=== PATIENT | male | born 1985 | race Caucasian/White ===

== ENCOUNTER 2016-06-04 08:51 | Observation (INO) | payer OTHER ==
[2016-06-04 08:53] VITALS: BMI 28.3
[2016-06-04] MEDS ORDERED: Sodium Chloride 0.9% 1,000 ML IV STA (09:21)
[2016-06-04 09:34] LABS: ADD MANUAL DIFF? NO
[2016-06-04 09:47] LABS: ALB/GLOB RATIO 1.2 (1.1-1.8); ALKALINE PHOSPHATASE 71 U/L (38-133); ALT/SGPT 56 U/L (7-56); AMYLASE 75 U/L (35-125); AST/SGOT 33 U/L (15-59); BILIRUBIN,TOTAL 0.8 mg/dL (0.2-1.3); BLOOD UREA NITROGEN 9 mg/dL (7-21); CALCIUM 9.8 mg/dL (8.4-10.5); CARBON DIOXIDE 28 mmol/L (21-33); CHLORIDE 100 mmol/L (98-107); GFR AFRICAN-AMERICAN > 60; GLUCOSE,RANDOM 124 mg/dL (70-110); LIPASE 99 U/L (23-300); POTASSIUM 4.2 mmol/L (3.6-5.0); SODIUM 140 mmol/L (132-148)
--- NOTE | 2016-06-04 09:47 | ED PDOC ---
Arrival/HPI - General Chief Complaint: Abdominal Pain Time Seen by Provider: 06/04/16 09:21 Historian: Patient - History of Present Illness Narrative History of Present Illness (Text): 06/04/16 09:44 30-year-old male presents today with lower abdominal pain that started 2 days ago. Patient states the pain is crampy and sharp in the lower abdomen and is nonradiating. He denies dysuria or urinary frequency or urgency. Denies vomiting. Patient states he's been having intermittent diarrhea. Patient states that pain is intermittent. No dizziness or weakness. He denies testicular pain. Denies back pain. Patient denies fevers or chills. No medications have been taken at home. No sick contacts. No other complaints. Past Medical History - Provider Review Nursing Documentation Reviewed: Yes - Travel History Have you recently traveled outside [place] w/in the past 3 mons?: No - Tetanus Immunization Tetanus Immunization: Unknown - Cardiac Hx Cardiac Disorders: No - Pulmonary Hx Respiratory Disorders: No - Neurological Hx Neurological Disorder: No - HEENT Hx HEENT Disorder: No - Renal Hx Renal Disorder: No - Endocrine/Metabolic Hx Endocrine Disorders: No - Hematological/Oncological Hx Blood Disorders: No - Integumentary Hx Dermatological Disorder: No - Musculoskeletal/Rheumatological Hx Musculoskeletal Disorders: Yes (cerebral palsy) - Gastrointestinal Hx Gastrointestinal Disorders: No - Genitourinary/Gynecological Hx Genitourinary Disorders: No - Psychiatric Hx Psychophysiologic Disorder: No Hx Substance Use: No - Surgical History Hx Orthopedic Surgery: Yes (left leg) Family/Social History - Physician Review Nursing Documentation Reviewed: Yes Family/Social History: Unknown Family HX Smoking Status: Former Smoker Hx Alcohol Use: No Hx Substance Use: No Allergies/Home Meds Allergies/Adverse Reactions: Allergies lactose Adverse Reaction (Verified 06/04/16 08:53) DIARRHEA Home Medications: Home Meds Medication Instructions Recorded Confirmed No Known Home Med 06/04/16 06/04/16 Review of Systems - Review of Systems Constitutional: absent: Fatigue, Fevers Respiratory: absent: SOB, Cough Cardiovascular: absent: Chest Pain, Palpitations Gastrointestinal: Abdominal Pain, Diarrhea. absent: Nausea, Vomiting Genitourinary Male: absent: Dysuria, Frequency, Hematuria, Urinary Output Changes Musculoskeletal: absent: Arthralgias, Back Pain, Neck Pain Skin: absent: Rash, Pruritis Neurological: absent: Headache, Dizziness Psychiatric: absent: Anxiety, Depression Physical Exam Vital Signs Reviewed: Yes Vital Signs Temp Pulse Resp BP Pulse Ox 06/04/16 08:53 98 F 89 16 149/83 96 Temperature: Afebrile Blood Pressure: Normal Pulse: Regular Respiratory Rate: Normal Appearance: Positive for: Well-Appearing, Non-Toxic, Comfortable Pain Distress: None Mental Status: Positive for: Alert and Oriented X 3 - Systems Exam Head: Present: Atraumatic Mouth: Present: Moist Mucous Membranes Neck: Present: Normal Range of Motion Respiratory/Chest: Present: Clear to Auscultation, Good Air Exchange. No: Respiratory Distress, Accessory Muscle Use Cardiovascular: Present: Regular Rate and Rhythm, Normal S1, S2. No: Murmurs Abdomen: Present: Tenderness (+ lower abdomen tenderness, rlq greater than llq) , Normal Bowel Sounds, McBurney's Point Tender. No: Distention, Peritoneal Signs, Rebound, Guarding Back: Present: Normal Inspection. No: CVA Tenderness, Midline Tenderness, Paraspinal Tenderness Neurological: Present: GCS=15 Skin: Present: Warm, Dry, Normal Color. No: Rashes Psychiatric: Present: Alert, Oriented x 3 Medical Decision Making ED Course and Treatment: 06/04/16 09:47 Patient is nontoxic well appearing with stable vital signs presenting with 2 day history of lower abdominal pain with diarrhea. + rlq and llq tenderness. CBC wnl CMP glucose; 124 Amylase wnl Lipase wnl Urinalysis + trace blood CAT scan:FINDINGS: LOWER THORAX: Heart appears borderline/ mildly enlarged. No significant pericardial effusion. Tiny hiatal hernia with slight wall thickening of the distal esophagus which could be due to protrusion of gastric mucosa. The possibility of esophagitis not excluded. Minimal bibasilar atelectasis. No effusion or basilar pneumothorax. LIVER: The liver is borderline/mildly enlarged measuring nearly 18 cm in CC dimension. Mild diffuse fatty hepatic infiltration. No obvious hepatic mass or collection. GALLBLADDER AND BILE DUCTS: Unremarkable. Gallbladder is physiologically distended. No evidence of intraluminal gallbladder calculi. PANCREAS: The pancreas is slightly fatty replaced. No pancreatic mass collection or calcification identified. No significant pancreatic ductal dilatation. . SPLEEN: The spleen exhibits normal size and attenuation pattern without mass collection or calcification. ADRENALS: The the right adrenal gland is unremarkable. Small approximately 12 mm nodule left adrenal gland. Followup at interval recommended to assess stability. KIDNEYS AND URETERS: Kidneys exhibit symmetric nephrograms. No evidence of nephrolithiasis or hydronephrosis. BLADDER: Urinary bladder is physiologically distended. No evidence of intraluminal urinary bladder calculi. REPRODUCTIVE: Prostate gland measures approximately 4.2 cm in transverse dimension. APPENDIX: The appendix is mildly dilated measuring up to 7.14 mm. Minimal prominence of the appendiceal wall. The possibility of an early acute appendicitis must be excluded with clinical correlation. BOWEL: The evaluation of the bowel is limited due to due to lack of oral contrast material. The stomach is distended with food debris liquid and air. . Multiple loops of proximal small bowel (including the duodenum) exhibit [id number] wall thickening and dilatation consistent with a nonspecific enteritis. Clinical correlation recommended the to exclude infectious versus inflammatory etiologies. Stool and air seen throughout the colon. No evidence of definitive mural wall thickening. Diverticula seen along the descending colon. PERITONEUM: No evidence of free intraperitoneal air. No free or loculated fluid collections. There is a small fat containing umbilical hernia. LYMPH NODES: No significant adenopathy VASCULATURE: Unremarkable. No aortic aneurysm. BONES: The osseous structures appear intact. . There appears to be a subtle subclinical dextroscoliosis. OTHER FINDINGS: None. IMPRESSION: Impression: Multiple loops of proximal small bowel exhibit dilatation and wall thickening consistent with nonspecific enteritis. In addition, there is also mild dilatation of the appendix measuring up to 7.14 mm with minimal prominence of the appendiceal wall. Findings are equivocal for acute appendicitis however early acute appendicitis cannot be excluded. Clinical correlation recommended. . Diverticulosis without radiographic evidence of acute diverticulitis. Borderline/mild hepatomegaly with mild fatty hepatic infiltration. Small left adrenal nodule. Followup study at interval recommended to assess stability. Patient reassessment: pt non toxic well appearing; no distress. Discussed all results with patient in depth case discussed with dr. summers and the operating room surgical technician. will admit observational status to dr. jiang service. all aspects of this case were discussed the attending of record. Impression:abdominal pain, r/o appendicitis admit observational status to med/surg for surgical evaluation and serial abdominal examination - Lab Interpretations Lab Results: 06/04/16 09:30 06/04/16 09:30 Lab Results 06/04/16 09:30: WBC 9.1, RBC 4.76, Hgb 15.0, Hct 43.2, MCV 90.8, MCH 31.5, MCHC 34.7, RDW 14.2, Plt Count 400, MPV 8.4, Gran % 58.7, Lymph % (Auto) 29.6, [place] % (Auto) 8.0 H, Eos % (Auto) 2.7, Baso % (Auto) 1.0, Gran # 5.35, Lymph # 2.7, [place] # 0.7 H, Eos # 0.3, Baso # 0.09, Sodium 140, Potassium 4.2, Chloride 100, Carbon Dioxide 28, Anion Gap 16, BUN 9, Creatinine 0.8, Est GFR ( Amer) > 60, Est GFR (Non-Af Amer) > 60, Random Glucose 124 H, Calcium 9.8, Total Bilirubin 0.8, AST 33, ALT 56, Alkaline Phosphatase 71, Total Protein 8.0, Albumin 4.3, Globulin 3.7, Albumin/Globulin Ratio 1.2, Amylase 75, Lipase 99, Urine Color Yellow, Urine Appearance Clear, Urine pH 6.0, Ur Specific [place] 1.025, Urine Protein Negative, Urine Glucose (UA) Negative, Urine Ketones Negative, Urine Blood Trace-intact H, Urine Nitrate Negative, Urine Bilirubin Negative, Urine Urobilinogen 0.2, Ur Leukocyte Esterase Negative, Urine RBC 0 - 2, Urine WBC Negative - RAD Interpretation Radiology Orders: 06/04/16 09:21 ABD & PELVIS IV CONTRAST ONLY [CT] Stat - Medication Orders Current Medication Orders: Discontinued Medications Sodium Chloride (Sodium Chloride 0.9%) 1,000 mls @ 999 mls/hr IV .Q1H1M STA Stop: 06/04/16 10:21 Last Admin: 06/04/16 09:31 Dose: 999 MLS/HR eMAR Start Stop Document 06/04/16 09:31 SE (Rec: 06/04/16 09:31 SE [id number]) Intravenous Solution Start Date 06/04/16 Start Time 09:31 Iohexol (Omnipaque 350 100 Ml) Confirm Administered Dose 350 mg .ROUTE .STK-MED ONE Stop: 06/04/16 10:02 Ketorolac Tromethamine (Toradol) 30 mg IVP STAT STA Stop: 06/04/16 10:50 Disposition/Present on Arrival - Present on Arrival Any Indicators Present on Arrival: No History of DVT/PE: No History of Uncontrolled Diabetes: No Urinary Catheter: No History of Decub. Ulcer: No History Surgical Site Infection Following: None - Disposition Have Diagnosis and Disposition been Completed?: Yes Diagnosis: Abdominal pain Disposition: HOSPITALIZED Disposition Time: 10:59 Patient Plan: Observation Condition: FAIR
[2016-06-04 09:48] LABS: BASO # 0.09 K/mm3 (0.0-2.0); EOS # 0.3 (0.0-0.7); EOS % 2.7 % (1.5-5.0); GRAN # 5.35 (1.4-6.5); GRAN % 58.7 % (50.0-68.0); HEMATOCRIT 43.2 % (42.0-52.0); LYMPH # 2.7 (1.2-3.4); LYMPH % 29.6 % (22.0-35.0); MEAN CELL VOLUME 90.8 fL (80.0-105.0); MEAN CORPUSCULAR HEMOGLOBIN 31.5 pg (25.0-35.0); MEAN CORPUSCULAR HGB CONC 34.7 g/dl (31.0-37.0); MEAN PLATELET VOLUME 8.4 fl (7.0-11.0); MONO # 0.7 (0.1-0.6); PLATELET COUNT 400 10^3/uL (120.0-450.0); RED CELL DISTRIBUTION WIDTH 14.2 % (11.5-14.5); URINE BILIRUBIN NEGATIVE (NEGATIVE); URINE BLOOD TRACE-INTACT (NEGATIVE); URINE GLUCOSE (UA) NEGATIVE (NEGATIVE); URINE KETONE NEGATIVE (NEGATIVE); URINE LEUKOCYTE ESTERASE NEGATIVE Leu/uL (NEGATIVE); URINE PROTEIN NEGATIVE mg/dL (<30 mg/dL); URINE UROBILINOGEN 0.2 E.U./dL (<1 E.U./dL); WHITE BLOOD COUNT 9.1 10^3/ul (4.5-11.0)
[2016-06-04 09:49] LABS: URINE APPEARANCE CLEAR (CLEAR); URINE COLOR YELLOW (YELLOW)
[2016-06-04 09:58] LABS: URINE RBC 0 - 2 /hpf (0-2); URINE WBC NEGATIVE /hpf (0-6)
[2016-06-04] MEDS ORDERED: Iohexol 350 MG/100 ML VIAL ONE (10:01)
--- NOTE | 2016-06-04 10:49 | CT ---
PROCEDURE: CT Abdomen and pelvis dated 06/04/2016. HISTORY: abd pain COMPARISON: No prior examination available for comparison TECHNIQUE: Contiguous pelvis performed in standard fashion following intravenous injection of approximately 100 cc of Omnipaque 350 contrast material. Pelvis. Oral contrast w not administered per request. The study is somewhat limited as a result. . . Coronal and Sagittal reformats generated. Radiation dose: Total exam DLP = 415.44 mGy-cm. FINDINGS: LOWER THORAX: Heart appears borderline/ mildly enlarged. No significant pericardial effusion. Tiny hiatal hernia with slight wall thickening of the distal esophagus which could be due to protrusion of gastric mucosa. The possibility of esophagitis not excluded. Minimal bibasilar atelectasis. No effusion or basilar pneumothorax. LIVER: The liver is borderline/mildly enlarged measuring nearly 18 cm in CC dimension. Mild diffuse fatty hepatic infiltration. No obvious hepatic mass or collection. GALLBLADDER AND BILE DUCTS: Unremarkable. Gallbladder is physiologically distended. No evidence of intraluminal gallbladder calculi. PANCREAS: The pancreas is slightly fatty replaced. No pancreatic mass collection or calcification identified. No significant pancreatic ductal dilatation. . SPLEEN: The spleen exhibits normal size and attenuation pattern without mass collection or calcification. ADRENALS: The the right adrenal gland is unremarkable. Small approximately 12 mm nodule left adrenal gland. Followup at interval recommended to assess stability. KIDNEYS AND URETERS: Kidneys exhibit symmetric nephrograms. No evidence of nephrolithiasis or hydronephrosis. BLADDER: Urinary bladder is physiologically distended. No evidence of intraluminal urinary bladder calculi. REPRODUCTIVE: Prostate gland measures approximately 4.2 cm in transverse dimension. APPENDIX: The appendix is mildly dilated measuring up to 7.14 mm. Minimal prominence of the appendiceal wall. The possibility of an early acute appendicitis must be excluded with clinical correlation. BOWEL: The evaluation of the bowel is limited due to due to lack of oral contrast material. The stomach is distended with food debris liquid and air. . Multiple loops of proximal small bowel (including the duodenum) exhibit [id number] wall thickening and dilatation consistent with a nonspecific enteritis. Clinical correlation recommended the to exclude infectious versus inflammatory etiologies. Stool and air seen throughout the colon. No evidence of definitive mural wall thickening. Diverticula seen along the descending colon. PERITONEUM: No evidence of free intraperitoneal air. No free or loculated fluid collections. There is a small fat containing umbilical hernia. LYMPH NODES: No significant adenopathy VASCULATURE: Unremarkable. No aortic aneurysm. BONES: The osseous structures appear intact. . There appears to be a subtle subclinical dextroscoliosis. OTHER FINDINGS: None. IMPRESSION: Impression: Multiple loops of proximal small bowel exhibit dilatation and wall thickening consistent with nonspecific enteritis. In addition, there is also mild dilatation of the appendix measuring up to 7.14 mm with minimal prominence of the appendiceal wall. Findings are equivocal for acute appendicitis however early acute appendicitis cannot be excluded. Clinical correlation recommended. . Diverticulosis without radiographic evidence of acute diverticulitis. Borderline/mild hepatomegaly with mild fatty hepatic infiltration. Small left adrenal nodule. Followup study at interval recommended to assess stability.
--- NOTE | 2016-06-04 13:16 | CP.PCM.HP ---
History of Present Illness - History of Present Illness History of Present Illness: HISTORY AND PHYSICAL FOR DR. PARKINSON 30M presents with abdominal pain. Patient states pain stated two days ago and is localized to his lower abdomen. He states it is worse in the right lower quadrant and describes it has pressure and aching. He denies fevers, chill, nausea or vomiting. Patient states he did have diarrhea yesterday and denies constipation. He has never had this type of pain before. PMH: Cerebral palsy PSH: left arm/left leg ortho surgery for contractures Social: quit tobacco 1 year ago, 1PPD before, quite alcohol a year ago, daily intake prior, admits to marijuana, denies other illicit drugs Allergies: lactose Present on Admission - Present on Admission Any Indicators Present on Admission: Yes Review of Systems - Review of Systems All systems: reviewed and no additional remarkable complaints except (as per HPI ) - Constitutional Constitutional: absent: Anorexia, Chills, Fever - EENT Eyes: absent: Blurred Vision, Loss of Vision Ears: absent: Ear Pain - Cardiovascular Cardiovascular: absent: Chest Pain, Dyspnea, Palpitations - Respiratory Respiratory: absent: Cough, Hemoptysis, Wheezing - Gastrointestinal Gastrointestinal: Abdominal Pain, Change in Bowel Habits, Diarrhea. absent: Bloating, Constipation, Heartburn, Nausea, Vomiting - Genitourinary Genitourinary: absent: Difficulty Urinating, Urinary Incontinence - Musculoskeletal Musculoskeletal: Atrophy (left arm atrophy 2/2 cerebral palsy), Deformity (2/2 cerebral palsy). absent: Muscle Weakness - Integumentary Integumentary: absent: Acne - Neurological Neurological: absent: Dizziness, Tremor, Weakness - Psychiatric Psychiatric: absent: Anxiety, Depression - Endocrine Endocrine: absent: Palpitations - Hematologic/Lymphatic Hematologic: absent: Easy Bleeding, Easy Bruising Past Patient History - Tetanus Immunizations Tetanus Immunization: Unknown - Past Social History Smoking Status: Former Smoker - CARDIAC Hx Cardiac Disorders: No - PULMONARY Hx Respiratory Disorders: No - NEUROLOGICAL Hx Neurological Disorder: No - HEENT Hx HEENT Problems: No - RENAL Hx Chronic Kidney Disease: No - ENDOCRINE/METABOLIC Hx Endocrine Disorders: No - HEMATOLOGICAL/ONCOLOGICAL Hx Blood Disorders: No - INTEGUMENTARY Hx Dermatological Problems: No - MUSCULOSKELETAL/RHEUMATOLOGICAL Hx Musculoskeletal Disorders: Yes (cerebral palsy) - GASTROINTESTINAL Hx Gastrointestinal Disorders: No - GENITOURINARY/GYNECOLOGICAL Hx Genitourinary Disorders: No - PSYCHIATRIC Hx Psychophysiologic Disorder: No Hx Substance Use: No - SURGICAL HISTORY Hx Orthopedic Surgery: Yes (left leg) Meds Allergies/Adverse Reactions: Allergies Allergy/AdvReac Type Severity Reaction Status Date / Time lactose AdvReac DIARRHEA Verified 06/04/16 08:53 Physical Exam - Constitutional Appears: Non-toxic, No Acute Distress - Head Exam Head Exam: ATRAUMATIC - Eye Exam Eye Exam: EOMI Pupil Exam: PERRL - ENT Exam ENT Exam: Mucous Membranes Moist - Respiratory Exam Respiratory Exam: Clear to Auscultation Bilateral, NORMAL BREATHING PATTERN - Cardiovascular Exam Cardiovascular Exam: REGULAR RHYTHM, +S1, +S2 - GI/Abdominal Exam GI & Abdominal Exam: Soft, Tenderness (RLQ greater then LLQ, positive McBurney' s point, positive psoas). absent: Distended, Firm, Guarding, Rebound, Rigid - Extremities Exam Extremities exam: Positive for: pedal pulses present. Negative for: tenderness - Back Exam Back exam: absent: tenderness - Neurological Exam Neurological exam: Alert, Oriented x3 Additional comments: unable to flex left toes - Psychiatric Exam Psychiatric exam: Normal Affect, Normal Mood - Skin Skin Exam: Dry, Intact, Normal Color, Warm Results - Vital Signs Recent Vital Signs: Last Vital Signs Temp 98 F 06/04/16 08:53 Pulse 89 06/04/16 08:53 Resp 16 06/04/16 08:53 BP 149/83 06/04/16 08:53 Pulse Ox 96 06/04/16 08:53 - Labs Result Diagrams: 06/04/16 09:30 06/04/16 09:30 Assessment & Plan - Assessment and Plan (Free Text) Assessment: 30M presents with abdominal pain, likely 2/[address] Scan: appendix mildly dilated to 7.14mm, minimal prominence of appendix wall , multiple loops of proximal small bowel exhibit dilatation, wall thickening, diverticulosis Plan: - NPO, IVF, Abx - pain control, anti-emetic, anti-pyretic - serial abdomen exams - will repeat labs in AM with serial abdominal exams to monitor patient progress Further recs discuss with Dr. Anil Gee, PGY1
[2016-06-04] MEDS: Sodium Chloride 0.9% 1,000 ML IV SCH (14:49)
[2016-06-04] MEDS: Piperacillin/Tazobact 3.375 gm 100 ML IVPB SCH ×2 (18:05→23:34)
[2016-06-05 07:19] LABS: ADD MANUAL DIFF? NO
[2016-06-05 07:25] LABS: BASO # 0.06 K/mm3 (0.0-2.0); BASO % 0.6 % (0.0-3.0); EOS # 0.2 (0.0-0.7); EOS % 2.5 % (1.5-5.0); GRAN # 5.48 (1.4-6.5); GRAN % 58.2 % (50.0-68.0); HEMATOCRIT 41.4 % (42.0-52.0); LYMPH # 2.6 (1.2-3.4); LYMPH % 27.5 % (22.0-35.0); MEAN CORPUSCULAR HEMOGLOBIN 30.7 pg (25.0-35.0); MEAN CORPUSCULAR HGB CONC 34.1 g/dl (31.0-37.0); MEAN PLATELET VOLUME 8.2 fl (7.0-11.0); MONO # 1.1 (0.1-0.6); MONO % 11.2 % (1.0-6.0); PLATELET COUNT 378 10^3/uL (120.0-450.0); RED CELL DISTRIBUTION WIDTH 14.2 % (11.5-14.5); WHITE BLOOD COUNT 9.4 10^3/ul (4.5-11.0)
[2016-06-05 07:37] LABS: INR 1.06 (0.93-1.08); PARTIAL THROMBOPLASTIN TIME 30.2 Seconds (23.7-30.8)
--- NOTE | 2016-06-05 08:15 | CP.PCM.PN ---
Subjective - Date & Time of Evaluation Date of Evaluation: 06/05/16 Time of Evaluation: 08:13 - Subjective Subjective: SURGERY NOTE FOR DR. PARKINSON 30M seen and examined at bedside. Patient states his pain now localized to the RLQ. He denies nausea/vomiting or change in bowel movements. He states he is hungry. Denies fevers, chills. Objective - Vital Signs/Intake and Output Vital Signs (last 24 hours): Temp Pulse Resp BP Pulse Ox 97.9 F 71 17 143/92 H 96 06/04/16 14:10 06/04/16 14:10 06/04/16 13:49 06/04/16 14:10 06/04/16 08:53 Intake and Output: 06/05/16 06/05/16 06:59 18:59 Intake Total 0 Balance 0 - Medications Medications: Current Medications Acetaminophen (Tylenol 325mg Tab) 650 mg PO Q6H PRN PRN Reason: Fever >100.4 F Sodium Chloride (Sodium Chloride 0.9%) 1,000 mls @ 100 mls/hr IV .Q10H [facility] Last Admin: 06/04/16 14:49 Dose: 100 mls/hr Metronidazole (Flagyl) 100 mls @ 100 mls/hr IVPB Q8 JASE PRN Reason: Protocol Ciprofloxacin (Cipro 200mg/100ml D5w) 100 mls @ 67 mls/hr IVPB Q12 J[facility] PRN Reason: Protocol Stop: 06/05/16 11:30 Ketorolac Tromethamine (Toradol) 15 mg IVP Q4 PRN PRN Reason: Pain, moderate (4-7) Last Admin: 06/04/16 22:15 Dose: 15 mg Ondansetron HCl (Zofran Inj) 4 mg IVP Q4 PRN PRN Reason: Nausea/Vomiting - Labs Labs: 06/05/16 06:45 PT 11.4 Seconds (9.9-11.8) 06/05/16 06:45 INR 1.06 (0.93-1.08) 06/05/16 06:45 APTT 30.2 Seconds (23.7-30.8) 06/05/16 06:45 - Constitutional Appears: Non-toxic, No Acute Distress - Head Exam Head Exam: ATRAUMATIC - Respiratory Exam Respiratory Exam: Clear to Ausculation Bilateral, NORMAL BREATHING PATTERN - Cardiovascular Exam Cardiovascular Exam: REGULAR RHYTHM, +S1, +S2 - GI/Abdominal Exam GI & Abdominal Exam: Soft, Tenderness (diffue abdominal pain, but greatest in the RLQ, positive mcburneys sign, positive psoas sign). absent: Distended, Firm , Guarding, Rigid, Rebound - Neurological Exam Neurological Exam: Alert, Awake - Skin Skin Exam: Dry, Intact, Normal Color, Warm
[2016-06-05] MEDS: metroNIDAZOLE IV 500 mg/100 ml 100 ML IVPB SCH ×2 (08:48→14:47)
[2016-06-05] MEDS: Sodium Chloride 0.9% 1,000 ML IV SCH ×2 (08:51→11:08)
[2016-06-05 09:25] LABS: ALB/GLOB RATIO 1.2 (1.1-1.8); ALKALINE PHOSPHATASE 59 U/L (38-133); ALT/SGPT 52 U/L (7-56); AST/SGOT 30 U/L (15-59); BLOOD UREA NITROGEN 9 mg/dL (7-21); CALCIUM 9.4 mg/dL (8.4-10.5); CARBON DIOXIDE 25 mmol/L (21-33); CHLORIDE 104 mmol/L (98-107); GFR AFRICAN-AMERICAN > 60; GLUCOSE,RANDOM 83 mg/dL (70-110); POTASSIUM 4.3 mmol/L (3.6-5.0); SODIUM 142 mmol/L (132-148); TOTAL PROTEIN 7.1 g/dL (5.8-8.3)
[2016-06-05] MEDS ORDERED: cefTRIAXone 1 gm 100 ML IVPB SCH (10:00)
[2016-06-05] MEDS ORDERED: Ciprofloxacin 200mg/100ml D5W 100 ML IVPB SCH (10:00)
[2016-06-05] MEDS ORDERED: Rocuronium 10 mg/ml (5 ml) ONE (14:16)
[2016-06-05] MEDS ORDERED: Propofol 10 mg/ml Inj (20 ML) ONE (14:16)
[2016-06-05] MEDS ORDERED: Succinylcholine 200 mg/10 ml Inj IV ONE (14:16)
[2016-06-05] MEDS ORDERED: Bupivacaine 0.5% Inj(30mL) ONE (14:18)
[2016-06-05] MEDS ORDERED: Sevoflurane - Inhalation Anesthetic Liq (250 ml) ONE (14:18)
[2016-06-05] MEDS ORDERED: Neostigmine Methylsulfate 3mg/3ml Syringe IV ONE (15:18)
--- NOTE | 2016-06-05 15:49 | PCM.SURG1 ---
Surgeon's Initial Post Op Note - Surgeon's Notes Surgeon: Anil Nicker And Breaker: Joe PGY2, Gerard Type of Anesthesia: General Endo, Local Pre-Operative Diagnosis: Appendicitis Operative Findings: inflamed appendix and hyperemic small bowel Post-Operative Diagnosis: same Operation Performed: laparoscopic appendectomy Specimen/Specimens Removed: appendix Estimated Blood Loss: EBL {In ML}: 5 Blood Products Given: N/A Drains Used: No Drains Post-Op Condition: Good Date of Surgery/Procedure: 06/05/16 Time of Surgery/Procedure: 15:49
[2016-06-05] MEDS ORDERED: HYDROmorphone 0.5 mg/0.5 ml ISec IVP PRN (15:58)
[2016-06-05] MEDS ORDERED: Lactated Ringer's 1,000 ML IV SCH (16:00)
[2016-06-05] MEDS: Oxycodone/Acetaminophen 5/325 mg Tab PO PRN (22:41)
[2016-06-06 07:50] LABS: HEMATOCRIT 41.3 % (42.0-52.0); MEAN CELL VOLUME 90.2 fL (80.0-105.0); MEAN CORPUSCULAR HEMOGLOBIN 30.8 pg (25.0-35.0); MEAN CORPUSCULAR HGB CONC 34.1 g/dl (31.0-37.0); MEAN PLATELET VOLUME 8.3 fl (7.0-11.0); WHITE BLOOD COUNT 13.3 10^3/ul (4.5-11.0)
[2016-06-06 09:21] VITALS: RESP 20; O2SAT 94
--- NOTE | 2016-06-06 09:24 | CP.PCM.PN ---
Subjective - Date & Time of Evaluation Date of Evaluation: 06/06/16 Time of Evaluation: 09:22 - Subjective Subjective: Surgery: Dr. Ma Pt seen and examined. Resting comfortably in bed. Pain improved compared to yesterday. No F/C. Eating very well. No N/V. Passing flatus. No BM. Pt states that he feels well enough to go home Surgical Progress Note - OBJECTIVE Intake & Output Last 24 Hours: Intake & Output 06/05/16 06/06/16 06/06/16 22:59 06:59 14:59 Intake Total 720 Balance 720 Intake: Oral 720 Other: # Voids Urine, Voided 2 # Bowel Movements 0 - ASSESSMENT Lab Results Last 24 Hours: Laboratory Results - last 24 hr 06/06/16 07:30 WBC 13.3 H D RBC 4.58 Hgb 14.1 Hct 41.3 L MCV 90.2 MCH 30.8 MCHC 34.1 RDW 14.0 Plt Count 384 MPV 8.3 Objective - Vital Signs/Intake and Output Vital Signs (last 24 hours): Temp Pulse Resp BP Pulse Ox 98.6 F 80 20 120/73 94 L 06/06/16 09:20 06/06/16 09:20 06/06/16 09:20 06/06/16 09:20 06/06/16 09:20 Intake and Output: 06/06/16 06/06/16 06:59 18:59 Intake Total 720 Balance 720 - Medications Medications: Current Medications Acetaminophen (Tylenol 325mg Tab) 650 mg PO Q6H PRN PRN Reason: Fever >100.4 F Sodium Chloride (Sodium Chloride 0.9%) 1,000 mls @ 100 mls/hr IV .Q10H [facility] Last Admin: 06/05/16 11:08 Dose: Not Given Metronidazole (Flagyl) 100 mls @ 100 mls/hr IVPB Q8 JASE PRN Reason: Protocol Last Admin: 06/05/16 14:47 Dose: Not Given Ketorolac Tromethamine (Toradol) 30 mg IVP Q6 PRN PRN Reason: Pain, moderate (4-7) Ondansetron HCl (Zofran Inj) 4 mg IVP Q4 PRN PRN Reason: Nausea/Vomiting Oxycodone/Acetaminophen (Percocet 5/325 Mg Tab) 1 tab PO Q6H PRN PRN Reason: Pain, severe (8-10) Stop: 06/08/16 15:52 Last Admin: 06/05/16 22:41 Dose: 1 tab - Labs Labs: 06/06/16 07:30 06/05/16 08:30 PT 11.4 Seconds (9.9-11.8) 06/05/16 06:45 INR 1.06 (0.93-1.08) 06/05/16 06:45 APTT 30.2 Seconds (23.7-30.8) 06/05/16 06:45 - Constitutional Appears: Non-toxic, No Acute Distress - Head Exam Head Exam: ATRAUMATIC, NORMOCEPHALIC - Eye Exam Eye Exam: EOMI - ENT Exam ENT Exam: Mucous Membranes Moist - Neck Exam Neck Exam: Full ROM - Respiratory Exam Respiratory Exam: NORMAL BREATHING PATTERN. absent: Accessory Muscle Use, Respiratory Distress - GI/Abdominal Exam GI & Abdominal Exam: Soft. absent: Distended, Firm, Guarding, Rigid, Tenderness , Rebound Additional comments: incisions C/D/I - Extremities Exam Extremities Exam: absent: Calf Tenderness, Pedal Edema - Neurological Exam Neurological Exam: Alert, Awake, Oriented x3 - Psychiatric Exam Psychiatric exam: Normal Affect, Normal Mood - Skin Skin Exam: Dry, Normal Color, Warm Assessment and Plan - Assessment and Plan (Free Text) Assessment: 30M w. appendicitis, s/p lap appendectomy, POD#1 -Leukocytosis likely reactive -Clear for D/C from surgical standpoint -Take pain meds as directed -Activity as tolerated -F/U w. Dr. Ma in 1 week -If questions or concerns arise return to ED -d/w attending Zemaitis PGY2
[2016-06-06] MEDS: Oxycodone/Acetaminophen 5/325 mg Tab PO PRN (10:28)
--- NOTE | 2016-06-06 16:53 | CP.PCM.DIS ---
Provider - Provider Date of Admission: 06/04/16 10:57 Attending physician: Paul Ma MD Primary care physician: NO PRIMARY CARE PROVIDER Time Spent in preparation of Discharge (in minutes): 30 Diagnosis - Discharge Diagnosis (1) Appendicitis Status: Acute Hospital Course - Lab Results Lab Results: Most Recent Lab Values WBC 13.3 10^3/ul (4.5-11.0) H D 06/06/16 07:30 RBC 4.58 10^6/uL (3.5-6.1) 06/06/16 07:30 Hgb 14.1 gm/dL (14.0-18.0) 06/06/16 07:30 Hct 41.3 % (42.0-52.0) L 06/06/16 07:30 MCV 90.2 fL (80.0-105.0) 06/06/16 07:30 MCH 30.8 pg (25.0-35.0) 06/06/16 07:30 MCHC 34.1 g/dl (31.0-37.0) 06/06/16 07:30 RDW 14.0 % (11.5-14.5) 06/06/16 07:30 Plt Count 384 10^3/uL (120.0-450.0) 06/06/16 07:30 MPV 8.3 fl (7.0-11.0) 06/06/16 07:30 Gran % 58.2 % (50.0-68.0) 06/05/16 06:45 Lymph % (Auto) 27.5 % (22.0-35.0) 06/05/16 06:45 [place] % (Auto) 11.2 % (1.0-6.0) H 06/05/16 06:45 Eos % (Auto) 2.5 % (1.5-5.0) 06/05/16 06:45 Baso % (Auto) 0.6 % (0.0-3.0) 06/05/16 06:45 Gran # 5.48 (1.4-6.5) 06/05/16 06:45 Lymph # 2.6 (1.2-3.4) 06/05/16 06:45 [place] # 1.1 (0.1-0.6) H 06/05/16 06:45 Eos # 0.2 (0.0-0.7) 06/05/16 06:45 Baso # 0.06 K/mm3 (0.0-2.0) 06/05/16 06:45 PT 11.4 Seconds (9.9-11.8) 06/05/16 06:45 INR 1.06 (0.93-1.08) 06/05/16 06:45 APTT 30.2 Seconds (23.7-30.8) 06/05/16 06:45 Sodium 142 mmol/L (132-148) 06/05/16 08:30 Potassium 4.3 mmol/L (3.6-5.0) 06/05/16 08:30 Chloride 104 mmol/L (98-107) 06/05/16 08:30 Carbon Dioxide 25 mmol/L (21-33) 06/05/16 08:30 Anion Gap 17 (10-20) 06/05/16 08:30 BUN 9 mg/dL (7-21) 06/05/16 08:30 Creatinine 0.9 mg/dL (0.5-1.4) 06/05/16 08:30 Est GFR ( Amer) > 60 06/05/16 08:30 Est GFR (Non-Af Amer) > 60 06/05/16 08:30 Random Glucose 83 mg/dL (70-110) 06/05/16 08:30 Calcium 9.4 mg/dL (8.4-10.5) 06/05/16 08:30 Total Bilirubin 1.0 mg/dL (0.2-1.3) 06/05/16 08:30 AST 30 U/L (15-59) 06/05/16 08:30 ALT 52 U/L (7-56) 06/05/16 08:30 Alkaline Phosphatase 59 U/L (38-133) 06/05/16 08:30 Total Protein 7.1 g/dL (5.8-8.3) 06/05/16 08:30 Albumin 3.9 g/dL (3.0-4.8) 06/05/16 08:30 Globulin 3.2 gm/dL 06/05/16 08:30 Albumin/Globulin Ratio 1.2 (1.1-1.8) 06/05/16 08:30 Amylase 75 U/L (35-125) 06/04/16 09:30 Lipase 99 U/L (23-300) 06/04/16 09:30 Urine Color Yellow (YELLOW) 06/04/16 09:30 Urine Appearance Clear (CLEAR) 06/04/16 09:30 Urine pH 6.0 (4.7-8.0) 06/04/16 09:30 Ur Specific [place] 1.025 (1.005-1.035) 06/04/16 09:30 Urine Protein Negative mg/dL (<30 mg/dL) 06/04/16 09:30 Urine Glucose (UA) Negative mg/dL (NEGATIVE) 06/04/16 09:30 Urine Ketones Negative mg/dL (NEGATIVE) 06/04/16 09:30 Urine Blood Trace-intact (NEGATIVE) H 06/04/16 09:30 Urine Nitrate Negative (NEGATIVE) 06/04/16 09:30 Urine Bilirubin Negative (NEGATIVE) 06/04/16 09:30 Urine Urobilinogen 0.2 E.U./dL (<1 E.U./dL) 06/04/16 09:30 Ur Leukocyte Esterase Negative Le/uL (NEGATIVE) 06/04/16 09:30 Urine RBC 0 - 2 /hpf (0-2) 06/04/16 09:30 Urine WBC Negative /hpf (0-6) 06/04/16 09:30 Blood Type O POSITIVE 06/04/16 20:12 Blood Type Confirm O POSITIVE 06/05/16 06:45 Antibody Screen Negative 06/04/16 20:12 BBK History Checked No verified bt 06/04/16 20:12 - Hospital Course Hospital Course: 30M admitted w. appendicitis. Underwent laparoscopic appendectomy. Post-op pt did well w. no complications. Clear for D/C. Discharge Exam - Head Exam Head Exam: ATRAUMATIC, NORMOCEPHALIC - Eye Exam Eye Exam: EOMI. absent: Scleral icterus - ENT Exam ENT Exam: Mucous Membranes Moist, Normal External Ear Exam - Neck Exam Neck exam: Full Rom - Respiratory Exam Respiratory Exam: NORMAL BREATHING PATTERN. absent: Accessory Muscle Use, Respiratory Distress - GI/Abdominal Exam GI & Abdominal Exam: Soft. absent: Distended, Firm, Guarding, Rigid, Tenderness - Neurological Exam Neurological exam: Alert, Oriented x3 Discharge Plan - Follow Up Plan Condition: FAIR Disposition: HOME/ ROUTINE Instructions: Laparoscopic Appendectomy (DC) Additional Instructions: You have been discharged from [facility]. If you have any severe abdominal pain , please go to the nearest emergency room. 1. Please f/u with Dr Ma in 1 weeks time. Referrals: PCP,NO [Primary Care Provider] - Paul Ma MD [Staff Provider] -
[2016-06-06 18:42] VITALS: BP 127/82; PULSE 90; TEMP 98.4
== END 2016-06-06 19:03 | disposition home or self-care (01) ==
LOC: ED 08:51 → ERH 10:57 → 5RNO 13:17
PROVIDERS: ADMIT Surgery; ATTEND Surgery
DX: K35.80 Unspecified acute appendicitis (principal); K52.9 Noninfective gastroenteritis and colitis, unspecified; K57.90 Diverticulosis of intestine, part unspecified, without perforation or abscess without bleeding; G80.9 Cerebral palsy, unspecified; Z87.891 Personal history of nicotine dependence
CPT/HCPCS: 36415; 44970; 74177; 80053; 81001; 82150; 83690; 85025; 85027; 85610; 85730; 86850; 86900; 88304; 96365; 96366; 96367; 96375; 96376; 99285; G0378; J0330; J0690; J0744; J1885; J2405; J2543; J2704; J2710; J3010; J7040; J7120; Q9967